=== PATIENT | female | born 1960 | race Caucasian/White ===

== ENCOUNTER 2016-10-15 20:04 | Emergency (ER) | payer BC ==
[~2016-10-15] VITALS: Ht 165.1 cm; Wt 86.3 kg
[~2016-10-15 20:04] MED LIST: ALEN70TA2 PO; ALPR0.25 PO; ALPR0.5T PO; AMIN500T PO; ARIP5TAB5 PO; ASCO-262 PO; AZIT250T81 PO; CALCIUM 500+VI1 EACH PO; CHLO500T2 PO; CHOL100048 PO; CLON0.5T3 PO; CLON1TAB3 PO; DESV50TA PO; DIAZ10TA PO; DPH25C PO; DULO30CA PO; FEBU80TA PO; FERR324T4 PO; GBPN100C PO; GBPN300C PO; GBPN600T PO; HYDR-3702 PO; HYDR-3719 PO; HYDR-700 PO; HYDR10TA13 PO; HYDR4TAB PO; HYDR50TA77 PO; HYDR5TAB2 PO; INDM25C PO; LACT1CAP39 PO; LACT1CAP62 PO; LEVO25TA42 PO; LEVO75TA PO; LITH450T14 PO; LORA1TAB PO; LTH300C PO; MAG1CAPS4 PO; MAGN400C PO; MELA1TAB8 PO; MELA300T PO; MELA3TAB34 PO; MELO10CA PO; METH4TAB27 PO; METH750T3 PO; MIRT15TA98 PO; MORP30TA PO; NF-LUBIP24 PO; NR-METANX PO; OLME5TAB3 PO; OLN5T PO; OMG1KC PO; ONDA4TAB8 PO; OXCA300T4 PO; OXYC-109 PO; OXYC1TAB6 PO; OXYC1TAB7 PO; OXYC1TAB8 PO; OXYC1TAB87 PO; PARO40TA3 PO; POLY17PO6 PO; POTA99TA3 PO; PRCD5U GT; TMZP15C PO; TRAZ150T72 PO; TRAZADONE PO; TRYP500C PO; Trazadone PO; UBID100C27 PO; VNL75CCR PO; VNL75T GT; VORT10TA PO; ZLP10T PO; ZOLP12.5 PO
--- OUTSIDE RECORDS SUMMARY | 2016-10-15 20:08 | XMS REPORT | Continuity of Care Document ---
Author Author [facility] Organization [facility] Address Unknown Phone Unavailable Care Team Providers Care Pile Driver Engineer Name Role Phone PCP Unavailable Source Comments Some departments are not documenting in the electronic medical record. If you do not see the information that you expected, contact Release of Information in the Health Information Management department at [phone] for further assistance in locating additional records.[facility] Active Allergies and Adverse Reactions Not on File Current Medications Not on file Active Problems Not on file Social History Tobacco Use Types Packs/Day Years Used Date Never Assessed Plan of Care Health Maintenance Due Date Last Done Comments Physical (Comprehensive) 1965 Exam Pertussis Vaccine 1969 Tetanus Vaccine 1975 Cervical Cancer Screening 1979 Breast Cancer Screening 1998 Colorectal Cancer 2008 Screening Influenza Vaccine 06/04/2016 Results from Last 3 Months Not on file
--- OUTSIDE RECORDS SUMMARY | 2016-10-15 20:09 | XMS REPORT | Continuity of Care Document ---
Author Author [facility] Organization [facility] Address Unknown Phone Unavailable Care Team Providers Care Motor Tester Name Role Phone PCP Unavailable Source Comments Some departments are not documenting in the electronic medical record. If you do not see the information that you expected, contact Release of Information in the Health Information Management department at [phone] for further assistance in locating additional records.[facility] Active Allergies and Adverse Reactions Not on [...]
--- NOTE | 2016-10-15 20:45 | NUR ---
Pt reports having a "severe panic attack" and after she was calmed down the pain between shoulders began. Pt reports having this type of pain in the past. Pt is worse with deep breathing.
[2016-10-15] MEDS ORDERED: ORPHENADRINE 60 MG/2 ML (NORFLEX) AMP IM ONE (20:50)
[2016-10-15] MEDS ORDERED: KETOROLAC 60 MG/2 ML (TORADOL) VIAL IM ONE (20:50)
[2016-10-15] MEDS ORDERED: HYDROmorphone 2 MG/ML (DILAUDID) 1 ML SYRINGE IM ONE (20:55)
[2016-10-15] MEDS ORDERED: ONDANSETRON 4 MG (ZOFRAN) ORAL DISSOLVE TAB PO ONE (20:55)
[2016-10-15] MEDS ORDERED: CLON2TAB3 PO (21:04)
[2016-10-15] MEDS ORDERED: DIPH1TAB25 PO (21:04)
[2016-10-15] MEDS ORDERED: [UNRECOGNIZED DRUG - CODE] MC (21:04)
[2016-10-15] MEDS ORDERED: ONDA-51 PO (21:04)
[2016-10-15] MEDS ORDERED: HYDR-700 PO (21:06)
[2016-10-15] MEDS ORDERED: OXYC1TAB6 PO (21:06)
--- NOTE | 2016-10-15 21:12 | NUR ---
PT TO RADIOLOGY VIA CART.
--- NOTE | 2016-10-15 21:22 | NUR ---
PT BACK IN ROOM- AWAITING RESULTS. AT BEDSIDE, CALL LIGHT WITHIN REACH.
[2016-10-15 21:49] VITALS: BP 160/89
--- NOTE | 2016-10-16 08:22 | Diagnostic Imaging Report ---
INDICATION: Back pain. AP and lateral views of the thoracic spine are obtained. The thoracic vertebrae are normal in height and alignment. There is slight scoliotic change. There is no compression deformity or acute fracture. There is minimal osteophyte formation throughout the thoracic region. IMPRESSION: Mild chronic changes with no acute bony abnormality. Dictated by: Dictated on workstation # [id number]
[2016-11-23] MEDS ORDERED: OXYC1TAB7 PO (22:04)
[2016-11-23] MEDS ORDERED: MIRT15TA8 PO (22:04)
== END 2016-10-15 21:45 | disposition home or self-care (01) ==
LOC: ED 20:05
DX: M51.34 Other intervertebral disc degeneration, thoracic region (principal)
CPT/HCPCS: 72072; 96372; 99282; J1170; J2360

== ENCOUNTER 2016-11-23 21:31 | Emergency (ER) | payer BC ==
[~2016-11-23] VITALS: Ht 167.6 cm; Wt 84.6 kg
[2016-11-23] MEDS ORDERED: LORazepam 2 MG/ML (ATIVAN) 1 ML VIAL IM ONE (21:55)
[2016-11-23] MEDS ORDERED: HYDROmorphone 1 MG/ML (DILAUDID) SYRINGE IM ONE (21:55)
[2016-11-23] MEDS ORDERED: ONDANSETRON 4 MG (ZOFRAN) ORAL DISSOLVE TAB PO ONE (21:55)
[2016-11-23 23:23] VITALS: BP 174/83
== END 2016-11-23 22:55 | disposition home or self-care (01) ==
LOC: ED 21:32
DX: F41.1 Generalized anxiety disorder (principal)
CPT/HCPCS: 96372; 99283; J1170; J2060; 99282

== ENCOUNTER → 2016-12-16 | Outpatient (REF) | payer BC ==
[2016-12-16 16:14] LABS: BASOPHILS % (AUTO) 1 % (0-2); EOSINOPHILS # (AUTO) 0.5 10^3uL; EOSINOPHILS % (AUTO) 7 % (0-4); MEAN CORPUSCULAR HGB CONC 33.7 g/dL (31.0-37.0); MEAN PLATELET VOLUME 8.7 FL (6.0-9.5); MONOCYTES % (AUTO) 14 % (3-11); NEUTROPHILS # (AUTO) 4.6 X10^3; NEUTROPHILS % (AUTO) 64 % (51-67); PLATELET COUNT 334 10^3uL (150-450); WHITE BLOOD COUNT 7.13 10^3uL (4.0-11.0)
[2016-12-16 16:16] LABS: MEAN CORPUSCULAR HEMOGLOBIN 26.6 PG (26.0-34.0); MEAN CORPUSCULAR VOLUME 79 FL (80-100)
[2016-12-16 16:21] LABS: ALBUMIN 4.3 g/dL (3.4-5.0); ANION GAP 15.9 MEQ/L (3-15); TOTAL PROTEIN 7.4 g/dL (6.4-8.5)
[2016-12-16 22:24] LABS: VITAMIN B 12 >2000 pg/mL (213-816)
== END ==
LOC: LAB 15:18
PROVIDERS: ATTEND Family Medicine
DX: E11.9 Type 2 diabetes mellitus without complications (principal); F32.2 Major depressive disorder, single episode, severe without psychotic features; E27.1 Primary adrenocortical insufficiency; E78.4 Other hyperlipidemia; E03.8 Other specified hypothyroidism; R29.6 Repeated falls
CPT/HCPCS: 80053; 80183; 82607; 82746; 83036; 84443; 85025; 86592

== ENCOUNTER → 2016-12-17 | Outpatient (CLI) | payer BC ==
[2016-12-17 19:54] LABS: IRON 41 ug/dL (50-170); UNBOUND IRON CONTENT 330 ug/dl (126-382)
[2016-12-17 20:13] LABS: HEPATITIS A ANTIBODY IGM Negative; HEPATITIS B CORE ABY IGM Negative; HEPATITIS B SURFACE ANTIGEN C Negative
== END ==
LOC: RAD 12:54
PROVIDERS: ATTEND Family Medicine
DX: M25.561 Pain in right knee (principal); M54.6 Pain in thoracic spine; M54.5 Low back pain; R74.8 Abnormal levels of other serum enzymes
CPT/HCPCS: 36415; 72072; 72100; 73562; 80074; 80329; 82728; 83540; 83550; 85610

== ENCOUNTER → 2016-12-18 | Outpatient (REF) | payer BC ==
[2016-12-18 14:12] LABS: BILIRUBIN,URINE Negative (Negative); CLARITY,URINE Clear; COLOR,URINE Yellow; GLUCOSE, URINE (UA) Negative (Negative); LEUKOCYTE ESTERASE ,URINE Negative (Negative); UROBILINOGEN,URINE 0.2 mg/dL (0.2-1.0)
[2016-12-18 15:08] LABS: RBC,URINE 0-2 /HPF; URINE CENTRIFUGED VOLUME 12 mL
== END ==
LOC: LAB 13:48
PROVIDERS: ATTEND Family Medicine
DX: E87.1 Hypo-osmolality and hyponatremia (principal); D64.9 Anemia, unspecified
CPT/HCPCS: 81003; 81015; 84300

== ENCOUNTER → 2016-12-18 | Outpatient (CLI) | payer BC ==
[~2016-12-18] MED LIST changes: +CLON2TAB3 PO; +DIPH1TAB25 PO; +MIRT15TA8 PO; +ONDA-51 PO; +[UNRECOGNIZED DRUG - CODE] MC
== END ==
LOC: RAD 09:49
PROVIDERS: ATTEND Family Medicine
DX: Z53.9 Procedure and treatment not carried out, unspecified reason (principal)

== ENCOUNTER → 2016-12-21 | Outpatient (CLI) | payer BC | LOC: RAD 17:55 | PROVIDERS: ATTEND Family Medicine | DX: R29.6 Repeated falls (principal); I99.8 Other disorder of circulatory system | CPT/HCPCS: 70553; A9579 ==

== ENCOUNTER → 2017-01-22 | Outpatient (CLI) | payer BC ==
--- NOTE | 2017-01-22 10:49 | Diagnostic Imaging Report ---
PROCEDURE: US Abdomen, limited. TECHNIQUE: Multiple realtime grayscale images were obtained over the abdomen in various projections. INDICATION: Elevated liver enzymes. COMPARISON: 04/07/2011. FINDINGS: The liver is measuring 21 cm in length which is mildly increased in size. The echogenicity is increased. There is no focal lesion. Hepatopetal flow is present in the main portal vein. The gallbladder is within normal limits. CBD is normal at 5-6 mm. The right kidney is negative. No free fluid is identified. The body of the pancreas was within normal limits. The head and tail could not be visualized adequately for assessment. IMPRESSION: Slight hepatomegaly with steatosis. Otherwise, an unremarkable study. Dictated by: Dictated on workstation # [id number]
== END ==
LOC: RAD 09:29
PROVIDERS: ATTEND Family Medicine
DX: R74.8 Abnormal levels of other serum enzymes (principal)
CPT/HCPCS: 76705